=== PATIENT | male | born 1935 | race Caucasian/White ===

== ENCOUNTER 2017-07-30 08:50 | Inpatient (IN) | payer MEDICARE ==
[~2017-07-30 08:50] MED LIST: CEFAZOLIN 2 Gram 2 GM/50 ML BAG IVPB ONE; CELECOXIB 100 MG CAPSULE PO ONE; FAMOTIDINE 20MG TABLET PO ONE; MECLIZINE 25 MG TABLET PO ONE; METOCLOPRAMIDE 10 MG TABLET PO ONE; VANCOMYCIN HCL 1,000 MG in DEXTROSE 5 % IN WATER 250 ML IVPB ONE
[2017-07-30 10:28] LABS: ABO GROUP A; ANTIBODY SCREEN NEGATIVE (NEGATIVE); RH TYPE NEGATIVE
[2017-07-30] MEDS ORDERED: ONDANSETRON HCL IV 4 MG/2 ML VIAL IVP PRN (12:53)
[2017-07-30] MEDS ORDERED: DIPHENHYDRAMINE HCL 25 MG CAPSULE PO PRN (12:53)
[2017-07-30] MEDS ORDERED: ACETAMINOPHEN 325 MG TAB PO PRN (12:53)
[2017-07-30] MEDS ORDERED: ACETAMINOPHEN W/ CODEINE 300MG/60MG TABLET PO PRN ×2 (12:53)
[2017-07-30] MEDS ORDERED: KETOROLAC 30 MG/ML VIAL IVP PRN ×2 (12:53)
[2017-07-30] MEDS ORDERED: HYDROMORPHONE HCL 2 MG/ML VIAL IM PRN (12:53)
[2017-07-30] MEDS ORDERED: BISACODYL 10 MG SUPP RC PRN (12:53)
[2017-07-30] MEDS ORDERED: NALOXONE 0.4 MG/1 ML VIAL IVP PRN (12:53)
[2017-07-30] MEDS ORDERED: AL HYDROX/MAG HYDROX 30ML UD PO PRN (12:53)
[2017-07-30] MEDS ORDERED: ZOLPIDEM TARTRATE 5 MG TABLET PO PRN (12:53)
[2017-07-30] MEDS ORDERED: MAGNESIUM HYDROXIDE 30 ML UDC PO PRN (12:53)
[2017-07-30] MEDS ORDERED: HYDROCODONE/APAP 10/325 TABLET PO PRN (12:53)
[2017-07-30] MEDS ORDERED: TRAMADOL HCL 50 MG TABLET PO PRN (12:53)
[2017-07-30] MEDS ORDERED: POLYETHYLENE GLY 17 GM PACKET PO PRN (13:51)
[2017-07-30] MEDS ORDERED: TRANEXAMIC ACID 1,000 MG/10 ML ML IV ONE ×2 (14:00)
[2017-07-30] MEDS ORDERED: BUPIVACAINE 0.5% W/EPI MPF 30 ML VIAL IVP ONE (14:00)
[2017-07-30] MEDS ORDERED: 0.9 % SODIUM CHLORIDE 10ML SYR IVP ONE (14:00)
[2017-07-30] MEDS ORDERED: ALPRAZOLAM 1 MG TAB PO ONE (14:19)
[2017-07-30] MEDS ORDERED: MIDAZOLAM HCL 2MG/2ML VIAL IV ONE (14:22)
[2017-07-30] MEDS ORDERED: SCOPOLAMINE 1 PATCH TDSY TD ONE (14:22)
[2017-07-30] MEDS ORDERED: ONDANSETRON HCL IV 4 MG/2 ML VIAL IVP ONE ×2 (14:22→19:00)
[2017-07-30] MEDS ORDERED: DIPHENHYDRAMINE HCL 50 MG/ML VIAL IVP ONE (14:22)
[2017-07-30] MEDS ORDERED: FENTANYL PF 100MCG/2ML VIAL IV ONE (14:22)
[2017-07-30] MEDS ORDERED: EPHEDRINE SULFATE 50 MG/ML ML IV ONE (14:22)
[2017-07-30] MEDS ORDERED: HYDROMORPHONE HCL 2 MG/ML VIAL IV ONE (14:22)
--- NOTE | 2017-07-30 16:20 | Operative Note ---
DATE OF SURGERY: 07/30/17 PREOPERATIVE DIAGNOSIS: END-STAGE ARTHROSIS OF THE RIGHT HIP. POSTOPERATIVE DIAGNOSIS: END-STAGE ARTHROSIS OF THE RIGHT HIP. PROCEDURE: CEMENTLESS RIGHT TOTAL HIP ARTHROPLASTY USING RAMOS-NEPHEW COMPONENTS WITH A SIZE 56 NO-HOLE REFLECTION CUP, A 32 MM DIAMETER, 35 DEGREE OFFSET LINER, A SIZE 13 HIGH OFFSET CEMENTLESS [place] TIFFANY WITH A +4, 32 MM DIAMETER COBALT CHROME HEAD. STAFF SURGEON: DR. LOPEZ. ANESTHESIA: SPINAL. PREPARATION: CHLORAPREP. INDIVIDUAL CONSIDERATION: NONE. PROCEDURE: The patient was taken to the Operating Room and placed supine on the operating room table. He had a successful induction of a spinal anesthetic. He was then placed on his side, right side up, and his right leg and hip were prepped and draped in the usual fashion. The patient had direct posterior approach to the hip. Sharp dissection was carried down through the skin and subcutaneous tissues. Small veins were coagulated with a Bovie. The tensor gluteal fascia was opened along the entire length of the incision and deep retractors were placed. Short external rotators were identified, piriformis fossa and removed exposing the posterior capsule. The posterior capsulectomy was performed. The hip was dislocated posteriorly. The patient had basically exposed bone in the head of the fat pad. A femoral neck cut was then made about a fingerbreadth above the lesser troch. A rim capsulectomy was then performed. The patient had a large medial wall osteophyte. Starting with a 45 mm reamer, I reamed directly just to the medial wall. I then reamed the introitus, which was size 55 for a size 56 cup. I then slightly under-reamed to 54. After irrigation, I impacted a size 56 no-hole reflection cup in 20 degrees of forward flexion and 40 degrees of abduction using the extra-articular alignment guide and bony landmarks. There was solid cementless fixation. The proximal femur was delivered into the wound. Box cutting osteotome was used to remove proximal metaphyseal bone. Mid stem reamed to roughly a size 13. I started feeling cortex at maybe 11 to 12. I broached to a size 13 calcar reamed. There was solid cementless fixation. With a high offset stem and a +4, 32 head, I had absolute stability. The trial was removed. I irrigated everything out completely. I then impacted a size 13 high offset [place] stem with solid cementless fixation and solid calcar contact. Irrigated it, dried the [place] Taper, impacted a size 32 [place] head, reduced the hip, and had solid stability. Anterior stability was verified with the hip in extension and external rotation. Full posterior stability with the hip flexed up almost knee-chest internally rotated 30-40 degrees. At 90 degrees of flexion and 90 degrees of internal rotation, I still had solid stability. The hip was then thoroughly irrigated out with pulsatile Betadine and saline to remove any visual or palpable debris. Hemostasis was obtained with a Bovie. The sciatic nerve was inspected and found to be completely intact. The tensor gluteal fascia was closed with a running #2 Quill. Prior to this, I did place 30 mL of saline mixed with a gram of Tranexamic acid. He did receive a gram of Tranexamic Acid IV preoperatively. The tensor gluteal fascia was closed with running #2 Quill, subcut was closed in layers of running 0 Quill and the skin was closed with beulah. The skin and subcutaneous tissue were then infiltrated with 30 mL of 0.50% Marcaine with Epinephrine prior. The patient tolerated the procedure well. Needle and sponge counts were correct. Estimated blood loss was 400 mL. We will check hemoglobin in the morning. There were no complications. A sterile [place] Aquacel-type dressing was applied. JOB NUMBER: [id number] MTDD
--- NOTE | 2017-07-30 16:47 | Rehab Evaluation ---
Patient Information - Patient Information Diagnosis: R hip DJD Ordered Treatment: PT Evaluate and Treat Status: Initial Evaluation Surgery: Yes Date of Surgery: 07/30/17 Past Medical/Surgical Hx: PAST MEDICAL/SURGICAL HISTORY Past Surgical History exploratory surgery for bowel obstruction no resection 2011 karol 2014 double hernia repair 2013 PMH - Respiratory Hx Respiratory Disorders No PMH - Cardiovascular Hx Cardiovascular Disorders Yes Hx Abnormal EKG No Hx Cardiac Catheterization Yes: nothing in past Hx Chest Pain Yes Hx Congestive Heart Failure No Hx Deep Vein Thrombosis No Hx Edema Yes: mild ankles Hx Heart Attack No Hx Hypertension Yes: problems his whole life, very labile , recent increase in b/p meds. 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 Exercise Tolerance Good Hx Transient Ischemic Attacks No (TIA) Comment: due to hip pain using cane PMH - Neuro Hx Neurological Disorders Yes Hx Brain Tumor No Hx Cerebrovascular Accident No Hx Dementia No Hx Dizziness No Hx Headaches Yes: occassional Hx Neuropathy No Hx Parkinson's Disease No Hx Seizures No Hx Speech Problem No Hx Syncope No Hx Transient Ischemic Attacks No (TIA) PMH - GI Hx Gastrointestinal Disorders Yes Hx Abdominal Pain No Hx Celiac Disease No Hx Crohn's Disease No Hx Diverticulitis No Hx Gastrointestinal Bleed No Hx Gastroesophageal Reflux No Hx Hepatitis/Jaundice No Hx Hiatal Hernia No Hx Irritable Bowel No Hx Liver Disease No Hx Nausea/Vomiting Yes: occassionally nausea possibly from meds Hx Obstructive Bowel Yes: in past no resection Hx Pancreatitis No Hx Rectal Bleeding No Hx Ulcer No Hx Weight Loss/Weight Gain No PMH - Hx Genitourinary Disorders Yes Hx Bladder Problem Yes: frequent small amts Hx Dialysis No Hx Kidney Stones Yes: in past Hx Prostate Problems Yes: BPH Hx Renal Disease No Hx Urinary Tract Infection No PMH - Endocrine Hx Endocrine Disorders No Hx Diabetes No Hx Thyroid Disease No PMH - Musculoskeletal Hx Musculoskeletal Disorders Yes Hx Arthritis Yes Hx Back Injury No Hx Fibromyalgia No Hx Gout No Hx Musculoskeletal Disease No Hx Osteoporosis No PMH - Psych Hx Psychiatric Problems Yes Hx Anxiety Yes: very anxious about surgery requesting xanax upon admission Hx Behavior Problems No Hx Depression No Hx Emotional Abuse No Hx Sexual Abuse No Hx Suicide Attempt No Major Depressive Episode No Feelings of Hopelessness No PMH - Hematology/Oncology Hx Hematology/Oncology No Disorders Hx Anemia No Hx Blood Disorders No Hx Bruising No Hx Cancer No Hx Clotting Problems No Hx Sickle Cell Disease No Hx Unexplained Bleeding No Hx Blood Transfusion Reaction No Premorbid Status: Detail (The patient was independent with mobility prior to surgery.) Social History: Detail (The patient lives in a one story home with spouse with 2 steps at the garage enterance. The patient's bathroom is equipped with a walk in shower with no seat or grab bars and an elevated toilet seat. The patient has a walker with 2 wheels and a standard cane.) Precautions: [place], Fall, Other (Total Hip Precautions.) - Time With Patient Total Time Spent With Patient (Min): 30 Treatment Procedures: Detail (Initial Evaluation, gait training) Subjective Information - Subjective Information Per Patient (The patient had no complaints of pain or other symptoms.) Objective Data - Mental Status Patient Orientation: Oriented x3 - Visual Perception Appears within normal limits for therapeutic activities - ROM Not within normal limits (The patient's R LE is with in THR precautions.) - Strength/Tone Not within normal limits (The patient's L LE strength is generally 4+ to 5/5 and the patient's R LE strength was not tested secondary to surgery but is functional ie: patient could lift R LE in and out of bed.) - Bed Mobility Independent (Independent supine to and from sit following THR precautions. The patient was also independent scooting up in bed.) - Transfers Independent (Independent with sit to and from stand transfer.) - Balance Balance Sitting: Good Balance Standing: Good - Sensation Intact - Gait Detail (The patient ambulated with 2 wheeled walker a distance of 108 feet x 1 WBAT on the R with supervision for safety only.) Therapy Assessment - Therapy Assessment Detail (The patient was independent with bed mobility, transfers and ambulation. Feel the patient will progress well with mobility.) Patient Education - Patient Education Teaching Topic: Exercise/Activity (The patient completed THR exercise program safely with verbal cues only to remember HEP. THR exercises included: ankle pumps, quad sets, gluteal sets, hamstring sets, hip abduction supine.), Precautions (The patient recalled and followed all THR precautions.) Response: Return Demonstration Teaching Method: Discussion, Handout Teaching Recipient: Patient Barriers To Learning: Age Related Problem List - Problem List Physical Therapy Problem List: Detail (1) Non ambulatory on stairs 2) Decreased R LE strength as to be expected following THR surgery.) Goals - Goals Physical Therapy Goals: 1) The patient will ambulate with supervision on stairs. 2) The patient will be independent with HEP. Prognosis - Prognosis Good Plan - Plan Physical Therapy Plan: PT 1-2 times a day until all inpatient goals are met for gait training and instruction in HEP.
[2017-07-30] MEDS ORDERED: PROMETHAZINE HCL 12.5 MG in 0.9 % SODIUM CHLORIDE 100ML 100 ML IVPB ONE (19:00)
[2017-07-30] MEDS: CEFAZOLIN 2 Gram 2 GM/50 ML BAG IVPB SCH (20:17)
[2017-07-30] MEDS: DOCUSATE SODIUM 100 MG CAPSULE PO SCH (21:17)
[2017-07-30] MEDS ORDERED: SIMVASTATIN 10MG TABLET PO SCH (22:00)
[2017-07-30] MEDS ORDERED: DOXAZOSIN MESYLATE 2 MG TABLET PO SCH (22:00)
[2017-07-30] MEDS ORDERED: PATIENT OWN MED: FINASTERIDE 5 MG PO SCH (22:00)
[2017-07-30] MEDS: POTASSIUM CHLORIDE/D5-0.9%NACL 20 MEQ/1,000 ML BAG IV SCH (23:09)
[2017-07-31] MEDS: HYDROCODONE/APAP 10/325 TABLET PO PRN ×3 (00:14→17:24)
[2017-07-31] MEDS: POTASSIUM CHLORIDE/D5-0.9%NACL 20 MEQ/1,000 ML BAG IV SCH ×2 (00:15→09:22)
[2017-07-31] MEDS: CEFAZOLIN 2 Gram 2 GM/50 ML BAG IVPB SCH ×2 (04:51→11:51)
[2017-07-31 06:46] LABS: HEMOGLOBIN 9.9 gm/dl (14.0-18.0)
[2017-07-31 06:57] LABS: BLOOD UREA NITROGEN 12 mg/dL (8-23); CREATININE 0.7 mg/dL (0.7-1.2); EST GLOMERULAR FILTRATION RATE > 60 mL/min; GLUCOSE,RANDOM 107 mg/dL (74-109)
[2017-07-31] MEDS: DOCUSATE SODIUM 100 MG CAPSULE PO SCH (09:16)
[2017-07-31] MEDS ORDERED: AMLODIPINE BESYLATE 5MG TAB PO SCH (10:00)
[2017-07-31] MEDS ORDERED: HYDROCHLOROTHIAZIDE 12.5 MG CAPSULE PO SCH (10:00)
[2017-07-31] MEDS ORDERED: BYSTOLIC 10 MG PO SCH (10:00)
[2017-07-31] MEDS ORDERED: RIVAROXABAN 10 MG TABLET PO SCH (10:00)
[2017-07-31] MEDS ORDERED: FERROUS SULFATE 325 MG TAB PO SCH (10:00)
[2017-07-31] MEDS ORDERED: LISINOPRIL 20 MG TABLET PO SCH (10:00)
--- NOTE | 2017-07-31 10:42 | Physical Therapy Tx Note ---
Physical Therapy Tx Note - Treatment Note Tolerated: Good Total Time Spent With Patient: 20 Physical Therapy Tx Note: Detail (The patient was seated on the edge of bed when PT arrived and just finished with OT session. The patient ambulated on stairs with present with use of railing and folded walker with supervision for safety only. The patient ambulated a distance of 200 feet x 1 with 2 wheeled walker independently WBAT on the R LE. The patient has passed all inpatient PT goals.) Physical Therapy Problem List: Detail (1) Non ambulatory on stairs 2) Decreased R LE strength as to be expected following THR surgery.) Physical Therapy Goals: 1) The patient will ambulate with supervision on stairs. 2) The patient will be independent with HEP. Physical Therapy Plan: The patient is discharged from inpatient PT , all goals have been met. The patient will continue with Home PT.
[2017-07-31] MEDS ORDERED: TAMSULOSIN HCL 0.4 MG CAP.ER.24H PO ONE (12:33)
--- NOTE | 2017-07-31 14:36 | Rehab Evaluation ---
Patient Information - Patient Information Diagnosis: R hip DJD Ordered Treatment: OT Evaluate and Treat Status: Initial Evaluation (OTRL accompanied by OT student, Honey Albert) Surgery: Yes Date of Surgery: 07/30/17 Past Medical/Surgical Hx: PAST MEDICAL/SURGICAL HISTORY Past Surgical History exploratory surgery for bowel obstruction no resection 2010 karol 2013 double hernia repair 2013 PMH - Respiratory Hx Respiratory Disorders No PMH - Cardiovascular Hx Cardiovascular Disorders Yes Hx Abnormal EKG No Hx Cardiac Catheterization Yes: nothing in past Hx Chest Pain Yes Hx Congestive Heart Failure No Hx Deep Vein Thrombosis No Hx Edema Yes: mild ankles Hx Heart Attack No Hx Hypertension Yes: problems his whole life, very labile , recent increase in b/p meds. 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 Exercise Tolerance Good Hx Transient Ischemic Attacks No (TIA) Comment: due to hip pain using cane PMH - Neuro Hx Neurological Disorders Yes Hx Brain Tumor No Hx Cerebrovascular Accident No Hx Dementia No Hx Dizziness No Hx Headaches Yes: occassional Hx Neuropathy No Hx Parkinson's Disease No Hx Seizures No Hx Speech Problem No Hx Syncope No Hx Transient Ischemic Attacks No (TIA) PMH - GI Hx Gastrointestinal Disorders Yes Hx Abdominal Pain No Hx Celiac Disease No Hx Crohn's Disease No Hx Diverticulitis No Hx Gastrointestinal Bleed No Hx Gastroesophageal Reflux No Hx Hepatitis/Jaundice No Hx Hiatal Hernia No Hx Irritable Bowel No Hx Liver Disease No Hx Nausea/Vomiting Yes: occassionally nausea possibly from meds Hx Obstructive Bowel Yes: in past no resection Hx Pancreatitis No Hx Rectal Bleeding No Hx Ulcer No Hx Weight Loss/Weight Gain No PMH - Hx Genitourinary Disorders Yes Hx Bladder Problem Yes: frequent small amts Hx Dialysis No Hx Kidney Stones Yes: in past Hx Prostate Problems Yes: BPH Hx Renal Disease No Hx Urinary Tract Infection No PMH - Endocrine Hx Endocrine Disorders No Hx Diabetes No Hx Thyroid Disease No PMH - Musculoskeletal Hx Musculoskeletal Disorders Yes Hx Arthritis Yes Hx Back Injury No Hx Fibromyalgia No Hx Gout No Hx Musculoskeletal Disease No Hx Osteoporosis No PMH - Psych Hx Psychiatric Problems Yes Hx Anxiety Yes: very anxious about surgery requesting xanax upon admission Hx Behavior Problems No Hx Depression No Hx Emotional Abuse No Hx Sexual Abuse No Hx Suicide Attempt No Major Depressive Episode No Feelings of Hopelessness No PMH - Hematology/Oncology Hx Hematology/Oncology No Disorders Hx Anemia No Hx Blood Disorders No Hx Bruising No Hx Cancer No Hx Clotting Problems No Hx Sickle Cell Disease No Hx Unexplained Bleeding No Hx Blood Transfusion Reaction No Premorbid Status: Detail (The patient was independent with mobility prior to surgery. Pt. received min assistance with I/ADL's from spouse (mostly VC's) due to mild cognitive impairment (STM).) Social History: Detail (The patient lives in a one story home with spouse with 2 steps at the garage enterance. The patient's bathroom is equipped with a walk in shower with small built in seat, and an elevated toilet seat. Pt purchased suction cup grab bars, but has not yet been installed. The patient has a walker with 2 wheels and a standard cane.) Precautions: [place], Fall, Other (Total Hip Precautions.) - Time With Patient Total Time Spent With Patient (Min): 50 Objective Data - Pain Pain Present: Yes (3/10 R hip at rest) - Mental Status Patient Orientation: Person (Pt. was able to state name and bday, but was not oriented to location or current date. Pt. exhibited difficulty with proprioception, STM, and comprehension, requiring extra processing time, simple step directions, and frequent repetition. Pt. was often disoriented to environment (i.e. didn't know where the toilet was when he was in the bathroom) and objects (i.e. orientation of clothing, understanding that pants were already pulled down during toileting, etc.).) - ROM Within normal limits (BUE AROM WNL) - Strength/Tone Within normal limits (4+/5 RUE MMT shd flex, BUE MMT all other planes 5/5. Pt.' s reported hx of B RTC tears with no sx intervention, but did not result in any functional deficits.) - Coordination Other (Motor planning difficulties d/t cognitive impairment. FMC appeared intact bilaterally.) - Bed Mobility Independent (supine to sit using bed rail with HOB raised.) - Transfers Independent (SBA VC's for hand placement to maximize safety with sit<>stand t/f' s. Pt. is physically Ind. with sit<>stand t/f and toilet t/f.) - Balance Balance Sitting: Good Balance Standing: Fair - Sensation Intact (BUE) - ADL's/IADL's Detail (Educ. provided in application of hip precautions to ADL's, such as bed mobility, t/f's, dressing, and toileting. Educ. provided in adaptive dressing techniques and use of hip kit AE (livestock agent, sock aid, long handled sponge). Pt.' s purchased a hip kit. Pt. required frequent VC's d/t cognition, but returned demo. use of livestock agent and sock aid with dressing LB. Min A required to doff brief, and don boxers, sweat pants, and socks. Min A clothing management during toileting; pt. was unaware he had already removed LB garments prior to sitting on 3-in-1 commode.) Therapy Assessment - Therapy Assessment Detail (In-pt. OT services not recommended at this time. However, Pt. would benefit from in-home OT evaluation and treatment to maximize safety and independence with ADL's. Pt. has some assistance from , but she may be physically unable to assist with some ADL's. Pt. may be able to perform ADL's more independently in his familiar environment d/t cognition. Pt. required moderate VC's to adhere to hip precautions during ADL's.) Patient Education - Patient Education Teaching Topic: Equipment Use, Precautions Response: Return Demonstration, Reinforcement Needed, Verbalize Understanding Teaching Method: Discussion, Demonstration Teaching Recipient: Patient, Significant Other () Barriers To Learning: Cognitive/Verbal Problem List - Problem List Physical Therapy Problem List: Detail (1) Non ambulatory on stairs 2) Decreased R LE strength as to be expected following THR surgery.) Goals - Goals Physical Therapy Goals: 1) The patient will ambulate with supervision on stairs. 2) The patient will be independent with HEP. Prognosis - Prognosis Good (if pt. follows hip precautions) Plan - Plan Physical Therapy Plan: The patient is discharged from inpatient PT , all goals have been met. The patient will continue with Home PT. Occupational Therapy Plan: D/C from in-pt. OT services. Educ. was provided to call rehab dept. if Q's arise when pt. returns home.
--- NOTE | 2017-07-31 19:47 | Discharge Summary ---
DATE OF ADMISSION: 07/30/2017 DATE OF DISCHARGE: 07/31/2017 DATE OF SURGERY: 07/30/2017 HISTORY: Mr. Stafford is a delightful 82-year-old man who presents with profound end-stage arthrosis of his right hip. He was admitted after right total hip arthroplasty. Postoperatively, he was independent the night of surgery. He did have problems with urinary retention and had to be straight cathed a couple times. At the time of this dictation, he was able to urinate a little bit, as we added Flomax but we're going to see how he does later in the day. If he does well, we will just send him home. If not, we will give him a Aleman and a Visiting Nurse can pull the Aleman in a day or two and we will cover him with Cipro. DISCHARGE INSTRUCTIONS: He will also be given [place] for pain and Xarelto for an additional four days for DVT prophylaxis followed by a Baby Aspirin daily after that. His discharge hemoglobin was 9.9. He did not require transfusion. He will follow-up in my office in four weeks. The Visiting Nurse will remove his sutures in two weeks. FINAL DIAGNOSIS/PRIMARY DIAGNOSIS: END-STAGE ARTHROSIS OF THE RIGHT HIP. SECONDARY DIAGNOSES: 1. Acute operative blood loss anemia. 2. Urinary retention. OPERATIONS AND PROCEDURES: CEMENTLESS RIGHT TOTAL HIP ARTHROPLASTY. JOB NUMBER: [id number] [facility]
== END 2017-07-31 17:31 | disposition home health service (06) | DRG 470 ==
LOC: MEDSURG 08:50
PROVIDERS: ADMIT Orthopaedic Surgery; ATTEND Orthopaedic Surgery
PROC: 0SR902A Replacement of Right Hip Joint with Metal on Polyethylene Synthetic Substitute, Uncemented, Open Approach (ICD-10-PCS; principal; 2017-07-30 11:00)
DX: M16.11 Unilateral primary osteoarthritis, right hip (principal); I10 Essential (primary) hypertension; E78.00 Pure hypercholesterolemia, unspecified
CPT/HCPCS: 80048; 85014; 85018; 86850; 86900; 86901; 97166; 97530; J1200; J2405; J3480; J7060